=== PATIENT | male | born 1995 | race Caucasian/White ===

== ENCOUNTER 2017-10-09 14:54 | Emergency (ER) | payer BC ==
--- NOTE | 2017-10-09 17:48 | ED ---
Complex/Multi-Sys Presentation - HPI Summary HPI Summary: This patient is a 22 year old M presenting to ED with a chief complaint of fatigue since yesterday. The patient was bit by an insect in late August, early September 2017. He reports he had a bad reaction including muscle tightness including chest wall pain, light-headedness and dizziness, difficulty breathing , N/V x2-3, difficulty concentrating and reading, and foggy head. The bite on his hand had swelling which resolved, but the onset of chest pain was a few days after that lasted a week; it also resolved by itself. Earlier today, he felt similar sx to when he got bit along with inability to walk due to fatigue. Patient denies GLEASON. PCP tested for insect allergies which came up negative. Recently, he also notes an inflamed lymph node which resolved on its own. The patient rates the pain 0/10 in severity. Symptoms aggravated by nothing. Symptoms alleviated by nothing. - History Of Current Complaint Chief Complaint: EDDizziness Time Seen by Provider: 10/09/17 17:34 Hx Obtained From: Patient Onset/Duration: Sudden Onset, Lasting Days, Still Present Severity Currently: None Aggravating Factor(s): nothing Alleviating Factor(s): nothing Associated Signs And Symptoms: Positive: Other - Patient reports muscle tightness including chest wall pain, light-headedness and dizziness, difficulty breathing, N/V x2-3, difficulty concentrating and reading, foggy head, inability to walk due to fatigue. Patient denies GLEASON. - Allergies/Home Medications Allergies/Adverse Reactions: Allergies Allergy/AdvReac Type Severity Reaction Status Date / Time No Known Allergies Allergy Verified 10/09/17 14:57 PMH/Surg Hx/FS Hx/Imm Hx Endocrine/Hematology History: Denies: Hx Diabetes Cardiovascular History: Denies: Hx Coronary Artery Disease, Hx Hypertension Infectious Disease History: No Infectious Disease History: Denies: Traveled Outside the [place] in Last 30 Days - Family History Known Family History: Negative: Cardiac Disease, Hypertension, Diabetes - Social History Alcohol Use: Rare Substance Use Type: Reports: None Smoking Status (MU): Never Smoked Tobacco Review of Systems Positive: Fatigue - inability to walk due to fatigue Positive: Other - inflamed lymph node (resolved on its own) Positive: Chest Pain - chest wall pain Positive: Other - difficulty breathing Positive: Vomiting, Nausea Positive: Other - muscle tightness Neurological: Other - light-headedness and dizziness, difficulty concentrating and reading, and foggy head Negative: Headache All Other Systems Reviewed And Are Negative: Yes Physical Exam - Summary Physical Exam Summary: GENERAL: Patient is a well-developed and nourished M who is lying comfortable in the stretcher. Patient is not in any acute respiratory distress. HEAD AND FACE: Normocephalic EYES: PERRLA, EOMI x 2. EARS: Hearing grossly intact. MOUTH: Oropharynx within normal limits. NECK: Supple, trachea is midline, no adenopathy, no JVD, no carotid bruit. CHEST: Symmetric, no tenderness at palpation LUNGS: Clear to auscultation bilaterally. No wheezing or crackles. CVS: Regular rate and rhythm, S1 and S2 present, no murmurs or gallops appreciated. ABDOMEN: Soft, non-tender. Bowel sounds are normal. No abdominal abnormal pulsations. EXTREMITIES: Full ROM in all major joints, no edema, no cyanosis or clubbing. NEURO: Alert and oriented x 3. No acute neurological deficits. Speech is normal and follows commands. SKIN: Dry and warm GCS 15 Triage Information Reviewed: Yes Vital Signs On Initial Exam: Initial Vitals Temp Pulse Resp BP Pulse Ox 98.5 F 83 12 144/66 98 10/09/17 14:57 10/09/17 14:57 10/09/17 14:57 10/09/17 14:57 10/09/17 14:57 Vital Signs Reviewed: Yes Diagnostics - Vital Signs Vital Signs Temp Pulse Resp BP Pulse Ox 10/09/17 17:12 74 17 153/82 100 10/09/17 14:57 98.5 F 83 12 144/66 98 - Laboratory Result Diagrams: 10/09/17 18:36 10/09/17 18:36 Lab Statement: Any lab studies that have been ordered have been reviewed, and results considered in the medical decision making process. - CT Brain CT CT Interpretation Completed By: Radiologist - 1. No acute intracranial pathology. 3. Left ethmoid sinusitis with several completely opacified left ethmoid air cells. ED physician has reviewed this radiology report. Complex Multi-Symp Course/Dx Assessment/Plan: This patient is a 22 year old M presenting to ED with a chief complaint of fatigue and multiple other sx since yesterday. CT Brain reveals 1. No acute intracranial pathology. 3. Left ethmoid sinusitis with several completely opacified left ethmoid air cells. Labs are not out yet. This patient will be signed out to Dr. Castillo, pending labs, IV fluids, and re-eval. - Diagnoses Provider Diagnoses: Sinusitis, Dizziness Discharge - Sign-Out/Discharge Documenting (check all that apply): Sign-Out Patient Signing out patient TO: Kendell Castillo Receiving patient FROM: Rafa Rice - Discharge Plan Condition: Good Disposition: HOME Prescriptions: Ondansetron [Zofran Odt] 8 mg PO TID PRN #12 tab.rapdis PRN Reason: Nausea Patient Education Materials: Acute Nausea and Vomiting (ED) Referrals: [facility] [Outside] - If Needed - Billing Disposition and Condition Condition: GOOD Disposition: Home - Attestation Statements Document Initiated by Scribe: Yes Documenting Scribe: Gopal Beebe Provider For Whom Scribe is Documenting (Include Credential): Rafa Rice MD Scribe Attestation: Gopal Taylor, scribed for Rafa Rice MD on 10/10/17 at 1016. Scribe Documentation Reviewed: Yes Provider Attestation: The documentation as recorded by the Gopal pal accurately reflects the service I personally performed and the decisions made by , Rafa Rice MD
[2017-10-09] MEDS ORDERED: NS 0.9% 1000 ML* 1,000 ML IV ONE (18:05)
--- NOTE | 2017-10-09 18:35 | RAD ---
EXAM: CT Head Without Intravenous Contrast CLINICAL HISTORY: 22 years old, male; Signs and symptoms; Dizziness and other: Difficulty concentrating; Additional info: Difficulty reading and concentrating TECHNIQUE: Axial computed tomography images of the head/brain without intravenous contrast. All CT scans at this facility use at least one of these dose optimization techniques: automated exposure control; mA and/or kV adjustment per patient size (includes targeted exams where dose is matched to clinical indication); or iterative reconstruction. COMPARISON: No relevant prior studies available. FINDINGS: Brain: No intracranial hemorrhage or extra-axial fluid collection. No evidence of mass effect or midline shift. Da Silva-white matter differentiation is normal. Ventricles: Unremarkable. No ventriculomegaly. Bones/joints: Unremarkable. No acute fracture. Soft tissues: Unremarkable. Sinuses: Several completely opacified left ethmoid air cells. Mastoid air cells: Unremarkable as visualized. No mastoid effusion. IMPRESSION: 1. No acute intracranial pathology. 3. Left ethmoid sinusitis with several completely opacified left ethmoid air cells.
[2017-10-09 18:46] LABS: ABS Basophils 0 10^3/ul (0-0.2); ABS Eosinophils 0.1 10^3/ul (0-0.6); ABS Monocytes 0.6 10^3/ul (0-0.8); ABS Neutrophils 13.5 10^3/ul (1.5-7.7); ABS Nucleated RBC 0 10^3/ul; Eosinophil % 0.5 % (0-6); Hematocrit 44 % (42-52); Hemoglobin 15.6 g/dl (14.0-18.0); Lymphocyte % 12.5 % (25-47); Mean Corpuscular HGB Conc 35 g/dl (31-36); Mean Corpuscular Hemoglobin 30 pg (27-31); Mean Corpuscular Volume 86 fL (80-94); Mean Platelet Volume 8.2 um3 (7.4-10.4); Nucleated Red Blood Cells % 0; Platelet Count 252 10^3/ul (150-450); Red Blood Count 5.12 10^6/ul (4.00-5.40); Red Cell Distribution Width 13 % (10.5-15); White Blood Count 16.2 10^3/ul (3.5-10.8)
[2017-10-09 19:04] LABS: EGFR Non-African American 97.7 (>60)
--- NOTE | 2017-10-09 19:08 | ED ---
Progress - Progress Note Progress Note: Pendings IV fluids, labs, reeval. Course/Dx - Diagnoses Provider Diagnoses: Sinusitis, Dizziness Discharge - Sign-Out/Discharge Documenting (check all that apply): Patient Departure - discharge - Discharge Plan Prescriptions: Ondansetron [Zofran Odt] 8 mg PO TID PRN #12 tab.rapdis PRN Reason: Nausea Patient Education Materials: Acute Nausea and Vomiting (ED) Referrals: [facility] [Outside] - If Needed - Attestation Statements Document Initiated by Scribe: Yes Documenting Scribe: Ramiro Dixon Provider For Whom Scribe is Documenting (Include Credential): Dr. Kendell Castillo MD Scribe Attestation: Ramiro Taylor, scribed for Dr. Kendell Castillo MD on 10/09/17 at 2024.
--- NOTE | 2017-10-09 20:23 | ED ---
Progress - Progress Note Progress Note: Pendings IV fluids, labs, reeval. Re-Evaluation - Re-Evaluation First Eval Re-Evaluation Time: 20:21 Change: Improved Comment: Patient was signed out to me pending laboratory studies which are normal but for some moderate leukocytosis. The patient is feeling better. He does say that there has been a gastric intestinal virus going around his [employer] and with the sudden onset of nausea and malaise I suspect that he has contracted this. The remainder of his lab studies being unremarkable I think he can be discharged at this point with a prescription for Zofran. Course/Dx - Diagnoses Provider Diagnoses: Sinusitis, Dizziness Discharge - Sign-Out/Discharge Documenting (check all that apply): Patient Departure, Receiving Sign-Out Signing out patient TO: Kendell Castillo Receiving patient FROM: Rafa Rice - Discharge Plan Condition: Good Disposition: HOME Prescriptions: Ondansetron [Zofran Odt] 8 mg PO TID PRN #12 tab.rapdis PRN Reason: Nausea Patient Education Materials: Acute Nausea and Vomiting (ED) Referrals: [facility] [Outside] - If Needed - Billing Disposition and Condition Condition: GOOD Disposition: Home
[2017-10-09] MEDS ORDERED: Ondansetron ODT TAB* 4 MG SL ONE (20:24)
[2017-10-09 20:51] VITALS: BP 124/72
== END 2017-10-09 20:56 | disposition home or self-care (01) ==
LOC: ED 14:54
DX: J32.9 Chronic sinusitis, unspecified (principal); R42 Dizziness and giddiness; R07.89 Other chest pain
CPT/HCPCS: 36415; 70450; 80053; 82607; 82746; 83605; 84439; 84443; 85025; 86141; 86308; 86618; 87040; 96360; 99283